=== PATIENT | male | born 1975 | race Caucasian/White ===

== ENCOUNTER 2016-09-14 09:44 | Emergency (ER) | payer MEDICAID, OTHER, SELFPAY ==
[~2016-09-14] VITALS: Ht 160 cm; Wt 65.4 kg
[2016-09-14] MEDS ORDERED: PERCOCET 5MG/325MG TAB PO ONE (11:15)
[2016-09-14] MEDS ORDERED: PERC5TAB12 PO (11:24)
[2016-09-14 11:33] VITALS: BP 151/92
--- NOTE | 2016-09-14 11:38 | REP ---
SCROTAL ULTRASOUND: 09/14/2016 CLINICAL HISTORY: Swelling right meliza scrotum and testis. Pain. COMPARISON: None. FINDINGS: The right testis measures 4.5 x 2 x 2.7 cm. The left testis measures 3.9 x 1.6 x 2.4 cm. There is no mass, cyst or calcification in the testis. Normal blood flow in and around that testis. Doppler tracing shows resistive index of 0.51. The left testis shows no cyst, solid mass or calcification. There is normal blood flow in and around that testis. Doppler tracing shows resistive index of 0.5. Epididymal head on the right is 11.2 mm with an epididymal head cyst 6.3 x 3.8 x 10.4 mm. In the region of the palpable finding, there is soft tissue edema superior to the testis. This is not a discrete mass. The left epididymis has cysts 2.5 x 3 mm and 2.6 x 2 mm within the epididymal head. There is no hydrocele on either side. There is no evidence of torsion. Of note is the presence of a varicocele bilaterally. IMPRESSION: 1. Some edema in the epididymal tissues above the right testis without discrete mass. There is one small epididymal head cyst noted. No hydrocele. No torsion on the right side. No testicular mass. 2. Left testis unremarkable without hydrocele and with two small epididymal head cyst. The left epididymis does have similar pattern of edema. Normal blood flow in both testes, no torsion. 3. No hydrocele 4. Bilateral varicocele. Signed by Aniceto Corona MD 09/14/2016 07:33 P
== END 2016-09-14 11:39 | disposition home or self-care (01) ==
LOC: M ED 11:18
DX: N45.1 Epididymitis (principal); N50.3 Cyst of epididymis; I86.1 Scrotal varices

== ENCOUNTER 2017-08-13 08:44 | Emergency (ER) | payer OTHER ==
[2017-08-13] MEDS: PERCOCET 5MG/325MG TAB PO (09:34)
== END 2017-08-13 10:13 | disposition home or self-care (01) ==
LOC: M ED 08:44
DX: S80.02XA Contusion of left knee, initial encounter (principal); W19.XXXA Unspecified fall, initial encounter; Y92.9 Unspecified place or not applicable; Y93.9 Activity, unspecified; Y99.0 Civilian activity done for income or pay
CPT/HCPCS: 73564

== ENCOUNTER 2018-01-09 15:52 | Emergency (ER) | payer OTHER ==
[2018-01-09] MEDS: ACETAMINOPHEN 325 MG TAB PO (16:57)
[2018-01-09] MEDS: traMADol 50 MG TAB PO (16:57)
== END 2018-01-09 20:16 | disposition home or self-care (01) ==
LOC: M ED 15:52
DX: S80.02XA Contusion of left knee, initial encounter (principal); M25.462 Effusion, left knee; X58.XXXA Exposure to other specified factors, initial encounter; Y92.9 Unspecified place or not applicable; Y93.9 Activity, unspecified; Y99.0 Civilian activity done for income or pay; Z72.0 Tobacco use
CPT/HCPCS: 93971

== ENCOUNTER 2021-08-22 12:37 | Emergency (ER) | payer OTHER, SELFPAY ==
[~2021-08-22] VITALS: Ht 167.6 cm; Wt 66.8 kg
[~2021-08-22 12:37] MED LIST: IBUP-1022 PO; NAPR-837 PO; PERC5TAB12 PO
[2021-08-22 13:59] LABS: HEMATOCRIT 45.4 % (42.0-52.0); HEMOGLOBIN 15.6 g/dl (13.5-17.5); MEAN CORPUSCULAR HEMOGLOBIN 32.8 pg (27.0-33.0); MEAN CORPUSCULAR HGB CONC 34.4 g/dl (32.0-36.5); MEAN CORPUSCULAR VOLUME 95.6 fl (80.0-96.0); PLATELET COUNT, AUTOMATED 281 10^3/uL (150-450); RED BLOOD COUNT 4.75 10^6/uL (4.30-6.10); WHITE BLOOD COUNT 7.3 10^3/uL (4.0-10.0)
[2021-08-22 14:00] LABS: BASO # 0.1 10^3/uL (0.0-0.2); BASO % 1.1 % (0.0-1.0); EOS # 0.3 10^3/uL (0.0-0.5); LYMPH # 1.9 10^3/uL (1.5-5.0); LYMPH % 25.8 % (24.0-44.0); MONO # 0.7 10^3/uL (0.0-0.8); MONO % 10.1 % (2.0-8.0); NEUTROPHILS # 4.3 10^3/uL (1.5-8.5); NEUTROPHILS % 58.7 % (36.0-66.0)
[2021-08-22 14:28] LABS: BLOOD UREA NITROGEN 13 MG/DL (7-18); CALCIUM LEVEL 9.2 MG/DL (8.5-10.1); CARBON DIOXIDE LEVEL 27 MEQ/L (21-32); CHLORIDE LEVEL 106 MEQ/L (98-107); GLOMERULAR FILTRATION RATE > 60.0 (>60); GLUCOSE, FASTING 91 MG/DL (70-100); POTASSIUM SERUM 4.3 MEQ/L (3.5-5.1); SODIUM LEVEL 139 MEQ/L (136-145)
[2021-08-22] MEDS ORDERED: ISOVUE-370 76% 100ML VIAL As Ordered ONE (15:13)
[2021-08-22] MEDS ORDERED: KETO10TAB PO (17:12)
[2021-08-22 17:15] VITALS: BP 139/94
== END 2021-08-22 17:33 | disposition home or self-care (01) ==
LOC: M ED 12:37 → EDBD 12:37 → M ED 17:33
DX: S29.011A Strain of muscle and tendon of front wall of thorax, initial encounter (principal); R91.1 Solitary pulmonary nodule; G54.0 Brachial plexus disorders; F17.200 Nicotine dependence, unspecified, uncomplicated; F10.10 Alcohol abuse, uncomplicated; Y92.9 Unspecified place or not applicable; Y93.9 Activity, unspecified
CPT/HCPCS: 36415; 71045; 71275; 80048; 85025; 93005; 93041; 94760; 99285; Q9967

== ENCOUNTER 2021-10-31 15:28 | Emergency (ER) | payer OTHER ==
[~2021-10-31] VITALS: Ht 165.1 cm; Wt 67.9 kg
[~2021-10-31 15:28] MED LIST changes: +KETO10TAB PO
[2021-10-31] MEDS ORDERED: NS 1,000 ML IV ONE (15:55)
[2021-10-31] MEDS ORDERED: MORPHINE 4 MG/ML 1ML VIAL/SYRINGE IV PRN (15:55)
[2021-10-31 16:07] LABS: BASO # 0.1 10^3/uL (0.0-0.2); BASO % 0.6 % (0.0-1.0); EOS # 0.3 10^3/uL (0.0-0.5); EOS % 2.5 % (0.0-3.0); HEMOGLOBIN 16.3 g/dl (13.5-17.5); LYMPH % 24.1 % (24.0-44.0); MEAN CORPUSCULAR HGB CONC 34.7 g/dl (32.0-36.5); MEAN CORPUSCULAR VOLUME 95.1 fl (80.0-96.0); MONO # 1.1 10^3/uL (0.0-0.8); MONO % 8.9 % (2.0-8.0); NEUTROPHILS # 7.8 10^3/uL (1.5-8.5); NEUTROPHILS % 63.5 % (36.0-66.0); PLATELET COUNT, AUTOMATED 352 10^3/uL (150-450); RED BLOOD COUNT 4.94 10^6/uL (4.30-6.10); WHITE BLOOD COUNT 12.3 10^3/uL (4.0-10.0)
[2021-10-31 16:42] LABS: ALBUMIN 3.6 GM/DL (3.2-5.2); ALT/SGPT 34 U/L (12-78); AMYLASE 42 U/L (25-115); BILIRUBIN,DIRECT 0.3 MG/DL (0.0-0.2); BILIRUBIN,TOTAL 1.2 MG/DL (0.2-1.0); BLOOD UREA NITROGEN 10 MG/DL (7-18); CALCIUM LEVEL 9.3 MG/DL (8.5-10.1); CARBON DIOXIDE LEVEL 25 MEQ/L (21-32); CHLORIDE LEVEL 106 MEQ/L (98-107); CREATININE FOR GFR 1.32 MG/DL (0.70-1.30); GLOMERULAR FILTRATION RATE > 60.0 (>60); GLUCOSE, FASTING 95 MG/DL (70-100); LIPASE 63 U/L (73-393); POTASSIUM SERUM 4.8 MEQ/L (3.5-5.1); SODIUM LEVEL 137 MEQ/L (136-145); TOTAL PROTEIN 7.7 GM/DL (6.4-8.2)
[2021-10-31 17:24] VITALS: BP 135/104
== END 2021-10-31 17:38 | disposition home or self-care (01) ==
LOC: M ED 15:28
DX: S90.32XA Contusion of left foot, initial encounter (principal); S63.501A Unspecified sprain of right wrist, initial encounter; W11.XXXA Fall on and from ladder, initial encounter; F17.200 Nicotine dependence, unspecified, uncomplicated; F10.10 Alcohol abuse, uncomplicated; Y92.009 Unspecified place in unspecified non-institutional (private) residence as the place of occurrence of the external cause; Y93.9 Activity, unspecified; Y99.9 Unspecified external cause status
CPT/HCPCS: 73090; 73110; 73130; 73590; 73610; 73630; 80048; 80076; 82150; 83605; 83690; 85025; 86850; 86900; 86901; 93041; 94760; 96361; 96374; 99285; J2270

== ENCOUNTER 2022-01-02 14:11 | Emergency (ER) | payer OTHER ==
[~2022-01-02] VITALS: Ht 167.6 cm; Wt 71.6 kg
[2022-01-02] MEDS ORDERED: NAPR220C14 PO (16:41)
[2022-01-02] MEDS ORDERED: KETOROLAC 30 MG/ML 1ML VIAL IV ONE (17:30)
[2022-01-02 17:33] LABS: BASO # 0.1 10^3/uL (0.0-0.2); BASO % 0.6 % (0.0-1.0); EOS # 0.3 10^3/uL (0.0-0.5); EOS % 2.8 % (0.0-3.0); HEMATOCRIT 44.3 % (42.0-52.0); LYMPH # 2.3 10^3/uL (1.5-5.0); LYMPH % 19.2 % (24.0-44.0); MEAN CORPUSCULAR HEMOGLOBIN 32.6 pg (27.0-33.0); MEAN CORPUSCULAR HGB CONC 33.9 g/dl (32.0-36.5); MEAN CORPUSCULAR VOLUME 96.3 fl (80.0-96.0); MONO # 0.7 10^3/uL (0.0-0.8); MONO % 6.1 % (2.0-8.0); NEUTROPHILS # 8.3 10^3/uL (1.5-8.5); PLATELET COUNT, AUTOMATED 275 10^3/uL (150-450); WHITE BLOOD COUNT 11.7 10^3/uL (4.0-10.0)
[2022-01-02 17:58] LABS: C REACTIVE PROTEIN QUANTITATIV 1.87 MG/DL (0.00-0.30); URIC ACID 4.5 MG/DL (3.5-7.2)
[2022-01-02 18:21] LABS: ERYTHROCYTE SEDIMENTATION RATE 9 mm/hr (0-15)
[2022-01-02] MEDS ORDERED: PERCOCET 5MG/325MG TAB PO ONE (19:05)
[2022-01-02 20:04] LABS: RSV AMPLIFICATION NEGATIVE (NEGATIVE)
[2022-01-02 20:43] LABS: SOURCE, BODY FLUID GLUCOSE RT KNEE; SOURCE, BODY FLUID URIC ACID RT KNEE; URIC ACID, BODY FLUID 4.9 MG/DL (NOT ESTABLISHED)
[2022-01-02 20:44] LABS: SOURCE, BODY FLUID RT KNEE; SYNOVIAL FLUID COLOR AMBER (COLORLESS)
[2022-01-02 20:51] LABS: SOURCE, BODY FLUID GLUCOSE RT KNEE
[2022-01-02 20:52] LABS: SOURCE, BODY FLUID URIC ACID RT KNEE; URIC ACID, BODY FLUID 4.9 MG/DL (NOT ESTABLISHED)
[2022-01-02 21:11] LABS: SOURCE, BODY FLUID RT KNEE; SYNOVIAL FLUID COLOR YELLOW (COLORLESS)
[2022-01-02 21:44] LABS: SOURCE, BODY FLUID CRYSTALS RT KNEE
[2022-01-02 21:45] LABS: CRYSTALS, BODY FLUID NONE SEEN (NONE SEEN)
[2022-01-02] MEDS ORDERED: COLC0.6T47 PO (21:45)
[2022-01-02] MEDS ORDERED: COLCHICINE 0.6 MG TABLET PO ONE (21:45)
[2022-01-02 21:46] LABS: CRYSTALS, BODY FLUID NONE SEEN (NONE SEEN); SOURCE, BODY FLUID CRYSTALS RT KNEE
[2022-01-02 22:04] VITALS: BP 144/95
== END 2022-01-02 22:06 | disposition home or self-care (01) ==
LOC: M ED 14:11
DX: M10.061 Idiopathic gout, right knee (principal); F17.200 Nicotine dependence, unspecified, uncomplicated; Z79.899 Other long term (current) drug therapy
CPT/HCPCS: 20610; 36415; 73564; 80047; 82945; 83605; 84550; 84560; 85025; 85652; 86140; 87040; 87070; 87205; 87631; 89051; 89060; 96374; 99284; J1885

== ENCOUNTER 2025-01-08 01:15 | Emergency (ER) | payer OTHER ==
[~2025-01-08] VITALS: Ht 165.1 cm; Wt 70.9 kg
[~2025-01-08 01:15] MED LIST changes: +COLC0.6T53 PO; -IBUP-1022 PO; +IBUP600T42 PO; +NAPR220C14 PO
[2025-01-08 01:17] VITALS: BP 138/98; TEMP 97.4; O2SAT 96
== END 2025-01-08 03:00 | disposition left against medical advice (07) ==
LOC: M ED 01:15
DX: Z53.21 Procedure and treatment not carried out due to patient leaving prior to being seen by health care provider (principal)

== ENCOUNTER → 2025-01-30 | Outpatient (CLI) | payer MEDICAID | LOC: M OUTALCOH 07:48 | PROVIDERS: ATTEND Psychiatry & Neurology Psychiatry | DX: F10.20 Alcohol dependence, uncomplicated (principal); F12.20 Cannabis dependence, uncomplicated ==

== ENCOUNTER 2025-02-14 08:59 | Outpatient (RCR) | payer MEDICAID | END 2025-02-19 | LOC: M OUTALCOH 08:59 | PROVIDERS: ATTEND Psychiatry & Neurology Psychiatry | DX: F10.20 Alcohol dependence, uncomplicated (principal); F12.20 Cannabis dependence, uncomplicated; F17.200 Nicotine dependence, unspecified, uncomplicated | CPT/HCPCS: 99211; G0397 ==

== ENCOUNTER → 2025-03-22 | Outpatient (RCR) | payer MEDICAID | LOC: M OUTALCOH 02-20 10:53 | DX: F10.20 Alcohol dependence, uncomplicated (principal); F12.20 Cannabis dependence, uncomplicated; F17.200 Nicotine dependence, unspecified, uncomplicated | CPT/HCPCS: G0397 ×2 ==